=== PATIENT | male | born 1975 | race African-American/Black ===

== ENCOUNTER 2018-10-27 22:47 | Emergency (ER) | payer MEDICAID ==
[2018-10-27 23:37] LABS: CHLORIDE,CL 96 mEq/L (98-106); SODIUM,NA 135 mEq/L (136-145)
[2018-10-27] MEDS ORDERED: Levofloxacin 500 MG Tab ONE (23:38)
[2018-10-27] MEDS ORDERED: Levofloxacin 500 MG Tab PO ONE (23:58)
--- NOTE | 2018-10-27 23:59 | EDM.PDOC ---
ED HPI GENERAL MEDICAL PROBLEM - General Chief Complaint: General Stated Complaint: CHEST PAIN Time Seen by Provider: 10/27/18 23:10 Source of Information: Reports: Patient, [facility] Records History Limitations: Reports: Other (TBI) - History of Present Illness INITIAL COMMENTS - FREE TEXT/NARRATIVE: [facility] with fever and non specific CP and elevated b/p, pt is awake and alert c/o cp but is not able to determine where in his chest the pain is, no sob, no nvdc, has a low grade fever 100.1, was given ntg SL without relief of cp at the prison Onset: Gradual Duration: Hour(s): Location: Reports: Chest Quality: Reports: Ache Severity: Mild Improves with: Reports: None Worsens with: Reports: None Associated Symptoms: Reports: Chest Pain Treatments PACKAGING INSPECTOR: Reports: Other (see below) (NTG) Anterior Chest Pain Score (Numeric/FACES): 4 - Related Data Allergies Allergy/AdvReac Type Severity Reaction Status Date / Time No Known Allergies Allergy Verified 10/27/18 23:35 Home Meds: Home Meds Acetaminophen [Tylenol] 650 mg PO Q4H PRN 10/27/18 [History] FLUoxetine HCl [Prozac] 20 mg PO DAILY 10/27/18 [History] Metoprolol Succinate [Toprol XL] 25 mg PO DAILY 10/27/18 [History] Polyethylene Glycol 3350 [MiraLAX] 17 gm PO DAILY 10/27/18 [History] Simvastatin 20 mg PO DAILY 10/27/18 [History] risperiDONE [RisperiDAL] 3 mg PO BEDTIME 10/27/18 [History] Past Medical History Cardiovascular History: Reports: High Cholesterol, Hypertension Neurological History: Reports: Brain Injury Psychiatric History: Reports: Bipolar, Schizophrenia Social & Family History - Family History Family Medical History: Noncontributory - Tobacco Use Smoking Status *Q: Former Smoker Used Tobacco, but Quit: Yes Month/Year Tobacco Last Used: 1999 ED ROS GENERAL - Review of Systems Review Of Systems: ROS reveals no pertinent complaints other than HPI. Constitutional: Reports: Fever HEENT: Reports: No Symptoms Respiratory: Reports: Cough. Denies: Shortness of Breath Cardiovascular: Reports: Chest Pain GI/Abdominal: Reports: No Symptoms. Denies: Abdominal Pain, Nausea, Vomiting Musculoskeletal: Reports: No Symptoms Skin: Reports: No Symptoms Psychiatric: Reports: No Symptoms Immunologic: Reports: No Symptoms ED EXAM, GENERAL - Physical Exam Exam: See Below Exam Limited By: Other (TBI) General Appearance: Alert, WD/WN, No Apparent Distress Nose: Normal Inspection Throat/Mouth: Normal Inspection, Normal Lips Head: Atraumatic, Normocephalic Neck: Normal Inspection, Supple Respiratory/Chest: No Respiratory Distress, Lungs Clear Cardiovascular: Normal Peripheral Pulses, Regular Rate, Rhythm, No Murmur Peripheral Pulses: 2+: Radial (L) GI/Abdominal: Soft, Non-Tender Back Exam: Normal Inspection, Full Range of Motion Extremities: Normal Inspection, Normal Range of Motion, Non-Tender, No Pedal Edema, Normal Capillary Refill Neurological: Alert, Oriented, Normal Cognition, Normal Gait, No Motor/Sensory Deficits Psychiatric: Normal Affect Skin Exam: Warm, Dry, Intact, Normal Color EKG INTERPRETATION EKG Date: 10/28/18 Time: 23:02 Rhythm: NSR Rate (Beats/Min): 82 [place]: Normal P-Wave: Present QRS: Normal ST-T: Normal QT: Normal EKG Interpretation Comments: NSR Course - Vital Signs Text/Narrative:: pt evaluated in the ED, WBC minimally elevated with a left shift, general chem are neg, CE neg, UA negm, EKG neg, CXR ant view was neg, poor insp film, lateral view shows some increase in markings, I questioned possible streaking pneumonia, I did discuss with the radiologist who advised in the right clinical setting an infiltrate can not be r/o. I suspect the pt has pneumonia, will tx with levaquin 500mg QD x 10 days, first dose in the ED. will f/u with pcp this week Last Recorded V/S: Last Vital Signs Temp 37.9 C 10/27/18 23:15 Pulse 75 10/27/18 23:34 Resp 18 10/27/18 23:09 BP 145/92 H 10/27/18 23:34 Pulse Ox 96 10/27/18 23:15 - Orders/Labs/Meds Orders: Active Orders 24 hr Category Date Time Status EKG Documentation Completion [RC] STAT Care 10/27/18 22:48 Active Chest 2V [CR] Stat Exams 10/27/18 22:48 Taken CULTURE BLOOD [BC] Stat Lab 10/27/18 23:44 Ordered CULTURE BLOOD [BC] Stat Lab 10/27/18 23:44 Ordered Blood Culture x2 Reflex Set [OM.PC] Stat Oth 10/27/18 23:44 Ordered Labs: Laboratory Tests 10/27/18 10/27/18 10/27/18 Range/Units 22:48 22:48 22:48 WBC 10.7 H (5.0-10.0) 10^3/uL RBC 4.71 (4.50-6.00) 10^6/uL Hgb 14.3 (14.0-18.0) g/dL Hct 41.3 (40.0-54.0) % MCV 87.7 (82.0-94.0) fL MCH 30.4 (27.0-32.0) pg MCHC 34.6 (33.0-38.0) g/dL RDW Coeff of [place] 12.1 (11.0-15.0) % Plt Count 228 (150-400) 10^3/uL Neut % (Auto) 85.6 H (35-85) % Lymph % (Auto) 6.3 L (10-55) % [place] % (Auto) 7.7 (0-16) % Eos % (Auto) 0.3 (0-5) % Baso % (Auto) 0.1 (0-3) % Neut # (Auto) 9.18 H (1.80-7.00) 10^3/uL Lymph # (Auto) 0.68 L (1.00-4.80) 10^3/uL [place] # (Auto) 0.83 H (0.00-0.80) 10^3/uL Eos # (Auto) 0.03 (0.00-0.45) 10^3/uL Baso # (Auto) 0.01 10^3/uL PT 10.7 (9.7-12.3) SEC INR 1.04 (0.92-1.18) APTT 30.8 (23.2-32.3) SEC Sodium 135 L (136-145) mEq/L Potassium 3.7 (3.5-5.0) mEq/L Chloride 96 L (98-106) mEq/L Carbon Dioxide 28 (21-32) mmol/L BUN 10 (7-18) mg/dL Creatinine 0.9 (0.7-1.3) mg/dL Est Cr Clr Drug Dosing 102.39 mL/min Estimated GFR (MDRD) > 60 (>=60) mL/min Glucose 171 H (75-99) mg/dL Calcium 9.1 (8.4-10.1) mg/dL Total Bilirubin 0.4 (0.0-1.0) mg/dL AST 27 (15-37) U/L ALT 84 H (12-78) U/L Alkaline Phosphatase 75 (46-116) U/L Lactate Dehydrogenase 146 (100-190) U/L Creatine Kinase 184 (35-232) U/L Troponin I < 0.017 (0.00-0.06) ng/mL Total Protein 7.7 (6.4-8.2) g/dL Albumin 4.1 (3.4-5.0) g/dL Urine Color (YELLOW) Urine Appearance (CLEAR) Urine pH (4.5-8.0) Ur Specific [place] (1.003-1.020) Urine Protein (NEGATIVE) mg/dL Urine Glucose (UA) (NEGATIVE) mg/dL Urine Ketones (NEGATIVE) mg/dL Urine Occult Blood (NEGATIVE) Urine Nitrite (NEGATIVE) Urine Bilirubin (NEGATIVE) Urine Urobilinogen (0.2-1.0) EU/dL Ur Leukocyte Esterase (NEGATIVE) 10/27/18 Range/Units 23:31 WBC (5.0-10.0) 10^3/uL RBC (4.50-6.00) 10^6/uL Hgb (14.0-18.0) g/dL Hct (40.0-54.0) % MCV (82.0-94.0) fL MCH (27.0-32.0) pg MCHC (33.0-38.0) g/dL RDW Coeff of [place] (11.0-15.0) % Plt Count (150-400) 10^3/uL Neut % (Auto) (35-85) % Lymph % (Auto) (10-55) % [place] % (Auto) (0-16) % Eos % (Auto) (0-5) % Baso % (Auto) (0-3) % Neut # (Auto) (1.80-7.00) 10^3/uL Lymph # (Auto) (1.00-4.80) 10^3/uL [place] # (Auto) (0.00-0.80) 10^3/uL Eos # (Auto) (0.00-0.45) 10^3/uL Baso # (Auto) 10^3/uL PT (9.7-12.3) SEC INR (0.92-1.18) APTT (23.2-32.3) SEC Sodium (136-145) mEq/L Potassium (3.5-5.0) mEq/L Chloride (98-106) mEq/L Carbon Dioxide (21-32) mmol/L BUN (7-18) mg/dL Creatinine (0.7-1.3) mg/dL Est Cr Clr Drug Dosing mL/min Estimated GFR (MDRD) (>=60) mL/min Glucose (75-99) mg/dL Calcium (8.4-10.1) mg/dL Total Bilirubin (0.0-1.0) mg/dL AST (15-37) U/L ALT (12-78) U/L Alkaline Phosphatase (46-116) U/L Lactate Dehydrogenase (100-190) U/L Creatine Kinase (35-232) U/L Troponin I (0.00-0.06) ng/mL Total Protein (6.4-8.2) g/dL Albumin (3.4-5.0) g/dL Urine Color Yellow (YELLOW) Urine Appearance Clear (CLEAR) Urine pH 5.5 (4.5-8.0) Ur Specific [place] 1.020 (1.003-1.020) Urine Protein Negative (NEGATIVE) mg/dL Urine Glucose (UA) Negative (NEGATIVE) mg/dL Urine Ketones Negative (NEGATIVE) mg/dL Urine Occult Blood Negative (NEGATIVE) Urine Nitrite Negative (NEGATIVE) Urine Bilirubin Negative (NEGATIVE) Urine Urobilinogen 0.2 (0.2-1.0) EU/dL Ur Leukocyte Esterase Negative (NEGATIVE) Meds: Medications Discontinued Medications Generic Name Dose Route Start Last Admin Trade Name Freq PRN Reason Stop Dose Admin Levofloxacin Confirm 10/27/18 23:38 10/27/18 23:59 Levaquin Administered 10/27/18 23:39 Not Given Dose 500 mg .ROUTE .STK-MED ONE Levofloxacin 500 mg 10/27/18 23:58 10/27/18 23:59 Levaquin PO 10/27/18 23:59 500 mg ONETIME ONE Administration Departure - Departure Time of Disposition: 00:19 Disposition: DC/Tfer to [facility] Condition: Good Clinical Impression: Pneumonia, Fever, Non-cardiac chest pain - Discharge Information *PRESCRIPTION DRUG MONITORING PROGRAM REVIEWED*: Not Applicable *COPY OF PRESCRIPTION DRUG MONITORING REPORT IN PATIENT MARY: Not Applicable Instructions: Healthcare-Associated Pneumonia, Chest Wall Pain Forms: ED Department Discharge Additional Instructions: increase fluids levaquin 500mg 1 x a day for 10 days alternate tylenol and motrin as needed for fever follow up with prison provider this week rturn to the ED sooner if worse or problems - Problem List & Annotations (1) Fever SNOMED Code(s): 809134162 Code(s): R50.9 - FEVER, UNSPECIFIED Status: Acute Priority: High Qualifiers: Fever type: unspecified Qualified Code(s): R50.9 - Fever, unspecified (2) Non-cardiac chest pain SNOMED Code(s): 758624597 Code(s): R07.89 - OTHER CHEST PAIN Status: Acute Priority: High (3) Pneumonia SNOMED Code(s): 998277126 Code(s): J18.9 - PNEUMONIA, UNSPECIFIED ORGANISM Status: Acute Priority: High Qualifiers: Pneumonia type: due to unspecified organism Laterality: unspecified laterality Lung location: unspecified part of lung Qualified Code(s): J18.9 - Pneumonia, unspecified organism - Problem List Review Problem List Initiated/Reviewed/Updated: Yes - My Orders Last 24 Hours: My Active Orders 10/27/18 22:48 EKG Documentation Completion [RC] STAT Chest 2V [CR] Stat 10/27/18 23:44 CULTURE BLOOD [BC] Stat CULTURE BLOOD [BC] Stat Blood Culture x2 Reflex Set [OM.PC] Stat - Assessment/Plan Last 24 Hours: My Active Orders 10/27/18 22:48 EKG Documentation Completion [RC] STAT Chest 2V [CR] Stat 10/27/18 23:44 CULTURE BLOOD [BC] Stat CULTURE BLOOD [BC] Stat Blood Culture x2 Reflex Set [OM.PC] Stat Plan: will f/u with pcp this week, see dc instructions
== END 2018-10-28 00:20 | disposition home or self-care (01) ==
LOC: CC.ED 22:47
DX: J18.9 Pneumonia, unspecified organism (principal); I10 Essential (primary) hypertension; Z79.899 Other long term (current) drug therapy; Z87.891 Personal history of nicotine dependence
CPT/HCPCS: 36415; 71046; 80053; 81003; 82550; 83615; 84484; 85025; 85610; 85730; 87040; 93005; 99285; A9270

== ENCOUNTER → 2022-06-04 | Day surgery (SDC) | payer MEDICARE, MEDICAID ==
[~2022-06-04] MED LIST: Flumazenil 0.1 MG/ML 10 ML MDV ONE; Ketamine 200 MG/20 ML MDV ONE; Lactated Ringers 1,000 ML IV SCH; Midazolam 1 MG/ML 2 ML SDV ONE; Propofol 200 MG/20 ML SDV ONE; fentaNYL 50 MCG/ML SDV ONE
== END ==
LOC: CC.SDS 07:46
PROVIDERS: ATTEND Family Medicine
DX: Z12.11 Encounter for screening for malignant neoplasm of colon (principal); E11.9 Type 2 diabetes mellitus without complications; F25.0 Schizoaffective disorder, bipolar type; Z79.84 Long term (current) use of oral hypoglycemic drugs; Z79.899 Other long term (current) drug therapy; Z87.820 Personal history of traumatic brain injury
CPT/HCPCS: 00812; J2250; J2704; J3010; J3490; J7120